=== PATIENT | male | born 1980 | race Caucasian/White ===

== ENCOUNTER 2020-10-26 10:11 | Emergency (ER) | payer OTHER, SELFPAY ==
[2020-10-26 10:47] VITALS: BP 124/64; PULSE 54; RESP 18; TEMP 36.7; O2SAT 98; BMI 25.0
--- NOTE | 2020-10-26 11:04 | ED.GENADULT ---
HPI - General Adult General Chief complaint: General Medical Stated complaint: ITCY SENSATION FACE SHOULDER CHEST Time Seen by Provider: 10/26/20 11:04 Source: patient Limitations: no limitations History of Present Illness HPI narrative: patient reports rash around his neck back to the base of his hairline. Rash is very itchy patient denies shortness of breath or any known contacts with allergens. Patient states rash has been ongoing and intermittent over the past few months. Patient is not taking any medicines for the rash in the past. Patient has not followed up with PCP. Patient is unsure if he has got contact with dirty water or other agents. Symptoms Related Data Previous Rx's Medication Instructions Recorded hydrocortisone 1 appl TOPICAL TID PRN #28.4 g 10/26/20 Allergies Allergy/AdvReac Type Severity Reaction Status Date / Time No Known Allergies Allergy Verified 10/26/20 10:44 Review of Systems Constitutional: Constitutional: Denies chills, Denies fever(s) and Denies headache(s) Eyes: Eyes: Reports as per HPI ENT: Denies headache(s) Cardiovascular: Cardiovascular: Denies chest pain and Denies dyspnea Respiratory: Respiratory: Denies dyspnea Gastrointestinal: Gastrointestinal: Denies nausea and Denies vomiting Integumentary/Breasts: Skin/Breast: Reports change in pigmentation and Reports rash Neurologic: Denies headache(s) Hematologic/Lymphatic: Hematologic/Lymphatic: Reports no additional hematologic/lymphatic complaints PMFSH Past Medical History Attestation statement: The following information was validated with the patient. Medical History No known health problems Social History Social History Advance Directives: Yes Advance Directives Information Provided: No Advance Directives on File: No Physical Exam Vital Signs: Vital Signs: Last Vital Signs Temp 98.1 F 10/26/20 10:47 Pulse 54 10/26/20 10:47 Resp 18 10/26/20 10:47 BP 124/64 10/26/20 10:47 Pulse Ox 98 10/26/20 10:47 Body Mass Index 25.0 vital signs have been reviewed as normal and appeared to be correct. Blood pressure normal. Heart rate normal. Respiration rate normal. Temperature normal. Oxygen saturation normal. Appearance: Alert. Oriented X3. No acute distress. Head: Normal external exam. Normocephalic. Atraumatic. Eyes: PERRLA. EOMI. ENT: Pharynx normal. Uvula midline. Moist mucous membranes. Neck: Soft full range of motion, no JVD CVS: Heart regular rate and rhythm no murmurs and rubs Respiratory: Breath sounds are clear to auscultation bilaterally. No accessory muscle use noted. Skin: patient has a slight maculopapular rash around the collar of the neck. Extending to the base of the hairline. No obvious blistering. Minimal erythema Extremities: No lower extremity edema. Extremities exhibit normal range of motion. Extremities nontender. Neuro: Oriented X 3. No motor deficit. No sensory deficit. Reflexes normal. Course Course Course Narrative: atopic dermatitis Contact dermatitis Allergic reaction Plan to trial patient on topical corticosteroids with follow-up with PCP and Dermatology Discharge Plan Discharge Clinical Impression: Contact dermatitis Patient Disposition: Home, Self-Care Instructions: Contact Dermatitis (ED) Additional Instructions: call PCP for referral to Dermatology new line dermatology phone Prescriptions: New hydrocortisone 1 % cream 1 appl topical TID PRN (Reason: rash) Qty: 28.4 RF: 0 Discharge Date/Time: 10/26/20 11:13
== END 2020-10-26 11:13 | disposition home or self-care (01) ==
PROVIDERS: Emergency Provider Emergency Medicine Emergency Medical Services
DX: L25.9 Unspecified contact dermatitis, unspecified cause (principal)
CPT/HCPCS: 99283

== ENCOUNTER 2021-05-06 20:14 | Emergency (ER) | payer OTHER, SELFPAY ==
[2021-05-06 21:09] VITALS: BP 106/57; PULSE 75; RESP 16; TEMP 36.3; O2SAT 98; BMI 24.4
== END 2021-05-07 01:17 | disposition left against medical advice (07) ==
PROVIDERS: Emergency Provider Emergency Medicine
DX: R10.9 Unspecified abdominal pain (principal)
CPT/HCPCS: 99281; 99282

== ENCOUNTER 2021-07-19 15:27 | Outpatient (REF) | payer OTHER, SELFPAY ==
--- NOTE | ~2021-07-19 | US_ITS ---
EXAMINATION: US SCROTUM CLINICAL INFORMATION: Scrotal pain. COMPARISON: None TECHNIQUE: A sonogram of the scrotum was performed assessing brown-scale appearance and color Doppler flow. Spectral Doppler analysis of the arterial and venous flow were performed in the testes bilaterally. FINDINGS: RIGHT: Right testicle measures 4.43 x 1.89 x 3.19 cm, volume 14.0 mL. There are numerous echogenic calcifications present. There is a small anechoic cyst in the lower pole measuring 0.18 x 0.22 x 0.15 cm. Spectral Doppler analysis of the arterial and venous flow is normal in the right testis. Right epididymal head is normal in size. There is small calcification in the right epidural head. Right epididymal Doppler flow is normal. There is a small hydrocele and a small varicocele present. LEFT: Left testicle measures 4.07 x 1.92 x 2.85 cm, volume 11.6 mL. There are numerous echogenic microcalcifications. Spectral Doppler analysis of the arterial and venous flow is normal in the left testis. Left epididymal head is normal in size. There is a small hydrocele and varicocele present. Left epididymal Doppler flow is normal. US/US scrotum IMPRESSION: 1. Bilateral hydroceles and varicocele. There is echogenic calcification of the right epididymal head. 2. 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 3. There is no evidence of scrotal hernia.
--- NOTE | ~2021-07-19 | US_ITS ---
EXAMINATION: US PELVIS, LIMITED/FOLLOW UP CLINICAL INFORMATION: Right groin lump. COMPARISON: None TECHNIQUE: Limited ultrasound imaging of right groin is performed. FINDINGS: Ultrasound imaging of right groin reveals peristaltic bowel loops in medial aspect of the right groin suggestive of hernia. To a similar extent similar findings are seen in the proximal left inguinal region. No mass or hematoma seen. US/US pelvic limited IMPRESSION: Likely bilateral inguinal hernia slightly more prominent on the right side involving proximal inguinal canal.
== END 2021-07-19 15:28 | disposition home or self-care (01) ==
LOC: HO.HMGCX 15:27
PROVIDERS: Visit Provider Nurse Practitioner Family
DX: N50.82 Scrotal pain (principal); R19.09 Other intra-abdominal and pelvic swelling, mass and lump
CPT/HCPCS: 76857; 76870

== ENCOUNTER 2021-08-09 15:43 | Outpatient (REF) | payer OTHER, SELFPAY ==
--- NOTE | ~2021-08-09 | US_ITS ---
EXAMINATION: US PELVIS, LIMITED/FOLLOW UP CLINICAL INFORMATION: Lump of right groin, evaluate for hernia COMPARISON: Limited ultrasound 07/19/2021 TECHNIQUE: Targeted ultrasound of the right groin in the area of concern was performed with a high-frequency linear transducer. FINDINGS: With the patient in standing position during Valsalva maneuvers, there is a small right inguinal hernia that contains fat and bowel. There is a 2.3 cm neck. The left inguinal region was scanned for comparison. No hernia is demonstrated. US/US pelvic limited IMPRESSION: Small right inguinal hernia containing fat and bowel, with a 2.3 cm neck is elicited only in the standing position, with Valsalva maneuver.
== END 2021-08-09 15:44 | disposition home or self-care (01) ==
LOC: HO.US 15:43
PROVIDERS: Visit Provider Nurse Practitioner Family
DX: R19.09 Other intra-abdominal and pelvic swelling, mass and lump (principal)
CPT/HCPCS: 76857

== ENCOUNTER → 2021-09-10 12:59 | Outpatient (BNVA) | payer OTHER, SELFPAY | PROVIDERS: PCP Nurse Practitioner Family; Visit Provider Surgery | DX: I45.6 Pre-excitation syndrome (principal); N50.82 Scrotal pain; R10.31 Right lower quadrant pain | CPT/HCPCS: 99202 ==

== ENCOUNTER 2021-09-20 12:11 | Outpatient (REF) | payer OTHER, SELFPAY ==
--- NOTE | ~2021-09-20 | CT_ITS ---
EXAMINATION: CT ABDOMEN AND PELVIS WITHOUT CONTRAST CLINICAL INFORMATION: Right lower quadrant pain COMPARISON: None TECHNIQUE: Multidetector volumetric imaging was performed from the superior aspect of the liver through the pubic symphysis. Sagittal and coronal reformatted images were obtained on the technologist's workstation. This CT examination was performed using dose optimization techniques as appropriate, variously including the following: *Automated exposure control *Adjustment of mA and/or kV according to patient size (this includes techniques or standardized protocols for targeted exams where dose is matched to indication/reason for exam; i.e. extremities or head) *Use of iterative reconstruction technique DLP: 396 mGy-cm FINDINGS: LUNG BASES: The visualized lung bases are unremarkable. LIVER, GALLBLADDER, AND BILIARY TREE: The liver is normal in size, shape, and attenuation. No focal hepatic lesion or biliary ductal dilatation is present. The gallbladder is unremarkable with no evidence of radiopaque gallstones, gallbladder wall thickening, or obvious pericholecystic inflammatory changes. PANCREAS: Unremarkable. SPLEEN: Unremarkable. ADRENAL GLANDS: Unremarkable. KIDNEYS AND URETERS: The kidneys are normal in size, shape, and attenuation. No hydronephrosis, hydroureter, or calculi seen. No perinephric stranding. BLADDER: Unremarkable. GASTROINTESTINAL TRACT: The small and large bowel are unremarkable. The appendix is unremarkable. ABDOMINAL WALL: No significant hernia is appreciated. LYMPH NODES: Normal. VASCULAR: Unremarkable. PELVIC VISCERA: The prostate and seminal vesicles are unremarkable. OSSEOUS STRUCTURES: No acute or suspicious osseous abnormality. CT/CT abdomen pelvis wo con IMPRESSION: No suspicious findings in the abdomen or pelvis. No inflammatory changes. Normal appendix. Fleischner guidelines were followed.
[2021-09-20] MEDS: Barium Sulfate Oral (Mocha) 450 ML ORAL.SUSP 900 ML PO (14:29)
== END 2021-09-20 12:12 | disposition home or self-care (01) ==
LOC: HO.CT 12:11
PROVIDERS: Visit Provider Surgery
DX: R10.31 Right lower quadrant pain (principal)
CPT/HCPCS: 74176

== ENCOUNTER → 2021-10-05 13:42 | Outpatient (BNVA) | payer OTHER, SELFPAY | PROVIDERS: PCP Nurse Practitioner Family; Visit Provider Surgery | DX: R39.11 Hesitancy of micturition (principal); R10.31 Right lower quadrant pain; I45.6 Pre-excitation syndrome | CPT/HCPCS: 99212 ==

== ENCOUNTER 2021-11-04 23:20 | Emergency (ER) | payer OTHER, SELFPAY ==
--- NOTE | ~2021-11-04 | XR_ITS ---
EXAMINATION: XR KNEE, LEFT CLINICAL INFORMATION: Knee injury COMPARISON: None TECHNIQUE: Four views of the left knee. 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 There is a new small knee joint effusion. No other abnormalities are seen. No joint space narrowing, significant osteophytes or chondrocalcinosis is present. 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
[2021-11-05 00:33] VITALS: BP 108/69; PULSE 76; RESP 16; TEMP 36.3; O2SAT 99; BMI 25.7
--- NOTE | 2021-11-05 01:06 | ED_ITS ---
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 Subsequently have pain on ambulation. Patient was working at the time. No systemic complaints no head injury no history being on blood thinners. No systemic complaints. Came in for further evaluation. Related Data Home Medications Medication Instructions Recorded Confirmed No Known Home Meds 09/10/21 09/10/21 Allergies Allergy/AdvReac Type Severity Reaction Status Date / Time No Known Allergies Allergy Verified 11/05/21 00:37 Review of Systems Review of Systems: No fever no chills no nausea no vomiting no head injury Yes all other systems are reviewed and are negative [facility] Past Medical History Attestation statement: The following information was validated with the patient. 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 Oriented X3. No acute distress. Eyes: Pupils equal, round and reactive to light. ENT: Pharynx normal. Neck: Normal inspection. Neck supple. No lymph nodes noted. No crepitus CVS: Normal heart rate and rhythm. Pulses normal. Normal S1 and S2 Respiratory: No respiratory distress. Breath sounds normal. No Wheezing. No rales Abdomen: Soft and nontender. No rigidity. No distention. good BS x4 Skin: Skin warm and dry. Normal skin color. Normal skin turgor. Extremities: Examination of the left knee show mild pain on palpation of the lateral collateral ligament. There is no pain on palpation of the patella or the medial collateral ligament. Range of motion is somewhat limited secondary to pain. Patient has no joint effusion or palpable. Distal neuro vascular status was intact. Ambulate with a slight limp. Neuro: Oriented X 3. No motor deficit. No sensory deficit. Moving all extermities. No slurred speech MDM - Extremity Injury (Lower) MDM Narrative Medical decision making narrative: X-ray showed no acute fracture cannot exclude the possibility of meniscal or ligamentous injury. With patient follow-up on an outpatient basis. In stable condition. Discharge Plan Discharge Clinical Impression: Acute internal derangement of knee Patient Disposition: Home, Self-Care Instructions: Knee Sprain (ED) Additional Instructions: Ice, elevate, Motrin for pain. Prescriptions: No Action No Known Home Meds Referrals: [facility] [Provider Group] Robert Eric MD [Physician] -
[2021-11-05] MEDS: Ibuprofen 600 MG TABLET PO (02:22)
== END 2021-11-05 02:25 | disposition home or self-care (01) ==
PROVIDERS: Emergency Provider Emergency Medicine Emergency Medical Services
DX: M23.92 Unspecified internal derangement of left knee (principal); F17.200 Nicotine dependence, unspecified, uncomplicated; Z71.6 Tobacco abuse counseling
CPT/HCPCS: 73564; 99283

== ENCOUNTER 2023-07-10 11:41 | Emergency (ER) | payer OTHER, SELFPAY ==
--- NOTE | ~2023-07-10 | CT_ITS ---
EXAMINATION: CT ABDOMEN AND PELVIS WITHOUT CONTRAST CLINICAL INFORMATION: Hematuria. COMPARISON: 09/20/2021 TECHNIQUE: Multidetector volumetric imaging was performed from the superior aspect of the liver through the pubic symphysis. Sagittal and coronal reformatted images were obtained on the technologist's workstation. This CT examination was performed using dose optimization techniques as appropriate, variously including the following: *Automated exposure control *Adjustment of mA and/or kV according to patient size (this includes techniques or standardized protocols for targeted exams where dose is matched to indication/reason for exam; i.e. extremities or head) *Use of iterative reconstruction technique DLP: 307 mGy-cm FINDINGS: LUNG BASES: The visualized lung bases are unremarkable. LIVER, GALLBLADDER, AND BILIARY TREE: The noncontrast liver is normal in size and contour. Scattered hypodensities are too small to characterize. No biliary ductal dilatation is present. The gallbladder is unremarkable with no evidence of radiopaque gallstones, gallbladder wall thickening, or obvious pericholecystic inflammatory changes. PANCREAS: Unremarkable. SPLEEN: Unremarkable. ADRENAL GLANDS: Unremarkable. KIDNEYS AND URETERS: The kidneys are symmetric in size. No renal or ureteral calculus. No hydronephrosis, hydroureter, or calculi seen. No perinephric stranding. BLADDER: Underdistended. No bladder calculus. GASTROINTESTINAL TRACT: Thick-walled loops of small bowel in the left midabdomen. No small bowel obstruction. ABDOMINAL WALL: No significant hernia is appreciated. LYMPH NODES: No bulky lymphadenopathy. VASCULAR: Normal caliber abdominal aorta. PELVIC VISCERA: Enlarged prostate gland. OSSEOUS STRUCTURES: No destructive bone lesions. CT/CT abdomen pelvis wo IV con IMPRESSION: No nephrolithiasis or hydronephrosis. Thick-walled loops of small bowel in the left midabdomen. This may represent enteritis. Advise clinical correlation.
[2023-07-10 11:45] VITALS: BP 104/83; PULSE 78; RESP 16; TEMP 37.1; O2SAT 97; BMI 24.2
[2023-07-10 12:13] LABS: MANUAL DIFF FLAG NO
[2023-07-10 12:15] LABS: Basophils Absolute Auto 0.1 X10*3/uL (0.0-0.2); Basophils Percent Auto 0.7 % (0-2); Eosinophils Absolute Auto 0.9 X10*3/uL (0.0-0.4); Eosinophils Percent Auto 12.3 % (0-4); Hematocrit 43.6 % (42.0-52.0); Hemoglobin 14.7 g/dl (14.0-18.0); Imm Gran Abs Auto 0.01 X10*3/uL (0.00-0.03); Imm Gran Pct Auto 0.1 % (0.0-0.4); Lymphocytes Absolute Auto 1.7 X10*3/uL (1.2-4.9); Mean Corpuscular HGB Conc 33.7 g/dl (31.0-36.0); Mean Corpuscular Hemoglobin 28.8 pg (27.0-33.0); Mean Corpuscular Volume 85.5 fL (80.0-98.0); Mean Platelet Volume 10.8 fL (9.4-12.4); Monocytes Absolute Auto 0.6 X10*3/uL (0.1-1.2); Monocytes Percent Auto 7.8 % (2-11); Neutrophils Absolute Auto 4.1 x10*3/uL (2.0-8.3); Neutrophils Percent Auto 56.1 % (45-73); Platelet Count 149 X10*3/uL (160-400); Red Cell Distribution Width 12.4 % (11.0-16.0); White Blood Count 7.4 X10*3/uL (4.8-10.8)
[2023-07-10 12:18] LABS: Appearance Urine Clear; Color Urine Yellow; Glucose Urine UA Negative (Negative); Leukocyte Esterase Urine Negative (Negative); Nitrite Urine Negative (Negative); PH 8.5 (5.0-9.0); Specific Gravity - Urine 1.015 (1.005-1.025); UMIC TRIGGER UACC YES; Urine Blood Small (1+) (Negative); Urine Ketones Negative (Negative); Urine Protein Negative (Neg-Trace)
[2023-07-10 12:23] LABS: Bacteria Urine None Seen (None Seen); Hyaline Casts Urine 0-2 /LPF (0-2); Squamous Epithelial Cell Urine 0-2 /HPF (0-2); UACC Culture Trigger YES
[2023-07-10 12:32] LABS: Alanine Aminotransferase 13 U/L (0-40); Albumin Level 4.4 g/dL (3.5-5.0); Alkaline Phosphatase 68 U/L (39-117); Anion Gap 11 (12-20); Aspartate Amino Transferase 15 U/L (5-37); Bilirubin Direct 0.1 mg/dL (0.0-0.5); Bilirubin Total 0.3 mg/dL (0.0-1.0); Blood Urea Nitrogen 9 mg/dL (9-16); Calcium 9.2 mg/dL (8.4-10.2); Carbon Dioxide 27 mmol/L (22-29); Chloride 107 mmol/L (96-108); Creatinine Clr Calc Pharmacy 117.4; Estimated Glomerular Filt Rate > 60; Glucose Random 106 mg/dL (60-115); Potassium 4.1 mmol/L (3.3-5.1); Sodium 141 mmol/L (135-145); Total Protein 6.9 g/dL (6.5-8.0)
[2023-07-10 12:49] VITALS: RESP 18
--- NOTE | 2023-07-10 13:00 | PC.NURSE ---
Patient came to ED from home due to hematuria this morning. Patient reports seeing 3-4 drops of red blood right after urinating. Patient states he is not taking thinners. Patient reports feeling urinary urgency but no incontinence. Patient has small, movable, non-painful lump in right suprapubic area that patient noticed 2 years ago. Patient also reports tightness feeling in LUQ. bowel sounds present, firmness felt in LUQ during exam. lung sounds clear throughout, vss.
--- NOTE | 2023-07-10 13:00 | ED.ABDPAIN ---
HPI - Abdominal Pain General Chief Complaint: Abdominal Pain Stated Complaint: Blood in stool/urine?, abd tightness Time Seen by Provider: 07/10/23 12:32 History of Present Illness HPI narrative: Patient is 43 years old presents today with having urination then noticed question few drops of blood at the end of his urination. Patient denies any fever chills. No cough no congestion or upper respiratory symptoms. Feels that his abdomen is asymmetric it may have some pain in the left upper quadrant area. Denies any penile discharge. Denies any blood in his stool. No diaphoresis. Patient also noted a bump in the right lower quadrant that has been ongoing for about 2 years. Patient can push it back. Did not have any nausea vomiting or diarrhea associated with it. Denies any alcohol or drugs. Related Data Home Medications Medication Instructions Recorded Confirmed No Known Home Meds 09/10/21 09/10/21 Allergies Allergy/AdvReac Type Severity Reaction Status Date / Time No Known Allergies Allergy Verified 11/05/21 00:37 Review of Systems Review of Systems Positive bloody urine Question left upper quadrant abdominal discomfort Yes all other systems are reviewed and are negative [facility] Past Medical History Source: unable to obtain Medical History Right inguinal hernia No known health problems Surgical History History of hand surgery Family History Family History Mother Diabetes Maternal Grandmother Diabetes Maternal Uncle Mouth cancer Other Substance use disorder Social History Social History Housing: House Alcohol intake: never Patient Tobacco Use Status: Current everyday Tobacco user Smoked in Last 30 Days: No e-Cigarette/Vaping Use: Never Used Second Hand Smoke Exposure: Yes Use of substances other than those prescribed or required for medical reasons: Yes Substance Use Type: Marijuana Substance Use Frequency: Occasionally Advance Directives: No service: No Current occupational status: employed 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 Oriented X3. No acute distress. Eyes: Pupils equal, round and reactive to light. ENT: Pharynx normal. Neck: Normal inspection. Neck supple. No lymph nodes noted. No crepitus CVS: Normal heart rate and rhythm. Pulses normal. Normal S1 and S2 Respiratory: No respiratory distress. Breath sounds normal. No Wheezing. No rales Abdomen: Soft and nontender. No rigidity. No distention. good BS x4 Skin: Skin warm and dry. Normal skin color. Normal skin turgor. Extremities: No lower extremity edema. Neurovascular intact to all extremities. No Lacerations. No Rash Neuro: Oriented X 3. No motor deficit. No sensory deficit. Moving all extermities. No slurred speech Medical Decision Making Medical Decision Making [facility] Narrative: Patient complaining of blood in the urine. CT scan of the abdomen pelvis did not show any acute evidence of kidney stone. No gross mass noted. It was a noncontrast study. Explained to patient the need to follow-up for his microscopic hematuria. Patient states understanding. Risk of malignancy still exists. CT scan showed no acute evidence of obstruction. No gross hernia. No abscesses. Question enteritis. Will have patient follow-up on an outpatient basis. Labs are normal. Urine showed no signs of infection. Patient denies any risk of STDs. In stable condition no dysuria postvoid patient has less than 250 cc no retention. Differential Diagnosis Differential Diagnoses: The differential diagnosis associated with the presentation includes Kidney stone, hematuria, UTI/cystitis Admission/Observation Consideration of admission/observation: Escalation of care including admission/observation considered Lab Data [facility] Lab Attestation statement: I reviewed the patient's lab results. 07/10/23 12:04 07/10/23 12:04 Labs: Lab Results 07/10/23 Range/Units 12:04 WBC 7.4 (4.8-10.8) X10*3/uL RBC 5.10 (4.60-5.80) X10*6/uL Hgb 14.7 (14.0-18.0) g/dl Hct 43.6 (42.0-52.0) % MCV 85.5 (80.0-98.0) fL MCH 28.8 (27.0-33.0) pg MCHC 33.7 (31.0-36.0) g/dl RDW 12.4 (11.0-16.0) % Plt Count 149 L (160-400) X10*3/uL MPV 10.8 (9.4-12.4) fL Immature Gran % (Auto) 0.1 (0.0-0.4) % Neut % (Auto) 56.1 (45-73) % Lymph % (Auto) 23.0 (20-40) % [place] % (Auto) 7.8 (2-11) % Eos % (Auto) 12.3 H (0-4) % Baso % (Auto) 0.7 (0-2) % Lymph # (Auto) 1.7 (1.2-4.9) X10*3/uL [place] # (Auto) 0.6 (0.1-1.2) X10*3/uL Eos # (Auto) 0.9 H (0.0-0.4) X10*3/uL Baso # (Auto) 0.1 (0.0-0.2) X10*3/uL Abs Immat Gran (auto) 0.01 (0.00-0.03) X10*3/uL Absolute Neuts (auto) 4.1 (2.0-8.3) x10*3/uL Absolute Nucleated RBC 0.000 (0.0-0.012) X10*3/uL Nucleated RBC % (auto) 0.0 (0.0-0.2) /100WBC Sodium 141 (135-145) mmol/L Potassium 4.1 (3.3-5.1) mmol/L Chloride 107 (96-108) mmol/L Carbon Dioxide 27 (22-29) mmol/L Anion Gap 11 L (12-20) BUN 9 (9-16) mg/dL Creatinine 0.89 (0.5-1.4) mg/dL Estim Creat Clear Calc 117.4 Estimated GFR > 60 Random Glucose 106 (60-115) mg/dL Calcium 9.2 (8.4-10.2) mg/dL Total Bilirubin 0.3 (0.0-1.0) mg/dL Direct Bilirubin 0.1 (0.0-0.5) mg/dL AST 15 (5-37) U/L ALT 13 (0-40) U/L Alkaline Phosphatase 68 (39-117) U/L Total Protein 6.9 (6.5-8.0) g/dL Albumin 4.4 (3.5-5.0) g/dL Urine Color Yellow Urine Appearance Clear Urine pH 8.5 (5.0-9.0) Ur Specific [place] 1.015 (1.005-1.025) Urine Protein Negative (Neg-Trace) mg/dL Urine Glucose (UA) Negative (Negative) mg/dL Urine Ketones Negative (Negative) mg/dL Urine Blood Small (1+) H (Negative) Urine Nitrite Negative (Negative) Ur Leukocyte Esterase Negative (Negative) Urine RBC 11-20 H (0-2) /HPF Urine WBC 6-10 H (0-5) /HPF Ur Squamous Epith Cells 0-2 (0-2) /HPF Urine Bacteria None Seen (None Seen) Hyaline Casts 0-2 (0-2) /LPF Independent Interpretation I performed an independent interpretation of an: CT Scan Radiology Impression Discussion of test interpretation with radiology: I have reviewed the radiologist's reading. External Record Review External record reviewed: Inpatient record Previous radiology report including CT reviewed Chronic Conditions History of WP[facility] Discharge Plan Discharge Clinical Impression: Hematuria Patient Disposition: Home, Self-Care Instructions: Hematuria (ED) Prescriptions: No Action No Known Home Meds Referrals: Leonard Aaron MD [Physician] - 07/14/23
--- NOTE | 2023-07-10 13:21 | PC.NURSE ---
patient urinated, bladder scanned post urination, 1ml in bladder. Patient to CT scan now.
[2023-07-10 14:21] VITALS: BP 91/62; PULSE 55; RESP 14; O2SAT 98
[2023-07-10 15:01] VITALS: BP 105/57; PULSE 64; RESP 18; O2SAT 99
== END 2023-07-10 15:06 | disposition home or self-care (01) ==
PROVIDERS: Emergency Provider Emergency Medicine Emergency Medical Services
DX: R31.9 Hematuria, unspecified (principal); R10.2 Pelvic and perineal pain; Z79.899 Other long term (current) drug therapy
CPT/HCPCS: 36415; 74176; 80048; 80076; 81001; 85025; 87086; 99284

== ENCOUNTER 2024-10-02 21:50 | Emergency (ER) | payer OTHER, SELFPAY ==
[2024-10-02 21:58] VITALS: BP 115/77; PULSE 67; RESP 18; TEMP 36.7; O2SAT 98; BMI 24.4
--- NOTE | 2024-10-03 00:31 | ED.WOUNDLAC ---
HPI - Wound/Laceration General Chief Complaint: Wound/Laceration Stated Complaint: hand laceration/sutured at [facility]/bleeding Time Seen by Provider: 10/03/24 00:23 Source: patient Mode of arrival: ambulatory Limitations: no limitations History of Present Illness ED Provider: HPI narrative: Patient apparently got laceration of the left hand from the tremor earlier was seen at [facility] on stitches were applied when patient went home noticed bleeding from the suture site does have patient came to the ER at this time no active bleeding patient is concerned that spacing between the sutures are very distant patient has received a tetanus shot at [facility] Related Data Home Medications ?Medication ?Instructions ?Recorded ?Confirmed No Known Home Meds 09/10/21 09/10/21 Allergies Allergy/AdvReac Type Severity Reaction Status Date / Time No Known Allergies Allergy Verified 10/02/24 22:01 Review of Systems Review of Systems: Yes all other systems are reviewed and are negative [facility] Past Medical History Medical History Right inguinal hernia No known health problems Surgical History History of hand surgery Family History Family History Mother Diabetes Maternal Grandmother Diabetes Maternal Uncle Mouth cancer Other Substance use disorder Social History Social History Housing: House Alcohol intake: never Patient Tobacco Use Status: Current everyday Tobacco user e-Cigarette/Vaping Use: Never Used Second Hand Smoke Exposure: Yes Substance Use Type: Marijuana Advance Directives: No Advance Directives Information Provided: No Do you have a plan to hurt others: No Plan service: No Current occupational status: employed 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 Oriented X3. No acute distress. Eyes: no pallor or icterus ENT: Pharynx normal Oral Mucosa moist tympanic membrane intact no erythema, Neck: Normal inspection. Neck supple. CVS: Normal heart rate and rhythm. Pulses normal. Respiratory: No respiratory distress. Equal air entry bilateral, no wheezing/rales/rhonchi Abd: soft, not tender Skin: Skin warm and dry. Normal skin color. Normal skin turgor. Extremities: Left hand with sutured laceration no active bleeding fairly approximated but still has gap between the stitches Neuro: Oriented X 3. Medical Decision Making Medical Decision Making MDM Narrative: Dermabond was applied at the places of separation of the skin which was superficial Discharge Plan Discharge Clinical Impression: Laceration of left hand Patient Disposition: Home, Self-Care Instructions: Laceration (ED) Additional Instructions: Local care as advised Take antibiotic as prescribed by other physician at [facility] Suture removal in 7-10 days Prescriptions: No Action No Known Home Meds Stand Alone Forms: Work/School Release Interventions: ED Discharge Assessment Last Done: 10/03/24 01:01 Discharge Date/Time: 10/03/24 01:04 Print Language: Peruvian
[2024-10-03 01:01] VITALS: BP 138/81; PULSE 79; RESP 18; TEMP 36.7; O2SAT 98
== END 2024-10-03 01:04 | disposition home or self-care (01) ==
PROVIDERS: Emergency Provider Internal Medicine; PCP Internal Medicine
DX: S61.412A Laceration without foreign body of left hand, initial encounter (principal); X58.XXXA Exposure to other specified factors, initial encounter; M79.642 Pain in left hand; Y93.9 Activity, unspecified; Y92.9 Unspecified place or not applicable; Y99.9 Unspecified external cause status
CPT/HCPCS: 12001; 99282

== ENCOUNTER 2024-10-19 08:27 | Outpatient (AMB) | payer OTHER, SELFPAY ==
--- NOTE | 2024-10-19 08:30 | A.OFFPC_ITS ---
Vital Signs 10/19/24 08:31 Height 6 ft 1 in Weight 170 lb 8 oz BMI 22.5 BP 110/66 Blood Pressure Location Lt brachial Position Sitting Respiration 18 Pulse 69 Pulse Source Pulse Oximeter Temp 97.1 F Temp Source Temporal Artery Scan Pulse Oximetry (%) 97 Oxygen Delivery Method Room Air Intake Visit Reasons: follow up Intake Note: Patient is today for re-establishment of care. Mini Bar Attendant Required: No Sign Maker: Not Required per policy Accompanied by: Self / Same As Patient Allergies No Known Allergies Allergy (Verified 10/19/24 09:03) Medication List - Last Reconciled 10/19/24 by VALENTINO Carrington No Known Home Meds Tobacco use date assessed: 10/19/24 Dental Screening Dental Screen Date: 10/19/24 Did you have a dental visit in the last 12 months?: No Did you have a dental problem in the last 6 months where you did not have access to dental care?: No Was dental information given to patient?: Patient declined HPI follow up HPI Details Previous PCP:VALENTINO Linton Last visit: 2019 PE: same Specialist: no OBGYN:n/a Past medical history: no new diagnosis Medications:no Family HX: cancer of unspecified types, 3 of his uncles and great aunt of cancer Problem: The patient is a 44-year-old male presenting with concerns about a lipoma, abdominal pain, and a skin condition. The patient reports a lipoma located in the groin area, which has been present for approximately two to three years. He has undergone multiple evaluations, including imaging, which confirmed the diagnosis of a lipoma. The lipoma does not cause pain but is a cosmetic concern for the patient. The patient also reports experiencing abdominal pain, described as occurring every night and located in the upper abdomen near the rib cage. The pain is not associated with any specific activities and does not worsen with palpation. Additionally, the patient has a skin condition characterized by widespread itching and white patches, which has persisted for about two years. He has tried various topical treatments without significant improvement and expresses concern about the appearance and persistence of the condition. The patient has a family history of cancer, with unspecified types affecting his uncle and great aunt. He denies any recent changes in his health status or new diagnoses since his last medical evaluation. 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 1. Little interest or pleasure in doing things: not at all 2. Feeling down, depressed, or hopeless: not at all 3. Trouble falling or staying asleep, or sleeping too much: not at all 4. Feeling tired or having little energy: not at all 5. Poor appetite or overeating: not at all 6. Feeling bad about yourself - or that you are a failure or have let yourself or your family down: not at all 7. Trouble concentrating on things, such as reading the newspaper or watching television: not at all 8. Moving or speaking so slowly that other people could have noticed. Or the opposite - being so fidgety or restless that you have been moving around a lot more than usual: not at all 9. Thoughts that you would be better off or of hurting yourself in some way: not at all Total score: 0 Depression Screening Interpretation: Negative Depression Screening Done: Yes Source: Developed by Drs. Jamie Herrera, Fernanda Combs, Pablo Cai and colleagues, with an educational allan from [employer]. Thrive Questionnaire Date Thrive assessed: 09/24/24 Within the past 12 months, did the food you bought not last and you didn't have the money to get more?: I choose not to answer this question Within the past 12 months, did you worry whether your food would run out before you got money to buy more?: I choose not to answer this question Do you have trouble paying for medicines?: No Do you have trouble getting transportation to medical appointments?: No Do you have trouble paying your heating and electricity bill?: No Do you have trouble taking care of your child, family member or friend?: No Do you have trouble with day-to-day activities such as bathing, preparing meals, shopping, managing finances, etc.?: No Are you currently unemployed and looking for a job?: Yes Are you interested in more education?: No Please select the resources that you would like help with: None Currently or been in a relationship where the following occur: I choose not to answer THRIVE Score: 0 AUDIT C Alcohol Use Questionnaire (AUDIT-C) 1. How often do you have a drink containing alcohol?: Never Total Score: 0 WELLINGTON-7 AMB Questionnaire WELLINGTON-7 Date WELLINGTON - 7 assessed: 10/19/24 Feeling nervous, anxious, or on edge: 0 = Not at all Not being able to stop or control worryin = Not at all Worrying too much about different things: 0 = Not at all Trouble relaxin = Not at all Being so restless that it is hard to sit still: 0 = Not at all Becoming easily annoyed or irritable: 0 = Not at all Feeling afraid as if something awful might happen: 0 = Not at all Total WELLINGTON-7 score (0-4 normal; 5-9 mild; 10-14 moderate; 15-21 severe): 0 Source: Developed by Drs. Jamie Herrera, Fernanda Combs, Pablo Cai and colleagues, with an educational allan from [employer]. WELLINGTON-7 Assessment Billing WELLINGTON-7 Assessment Tool: WELLINGTON-7 Assessment 38985 Review of Systems Const Denies headache(s) Eyes Denies loss of vision ENT Denies vertigo, Denies dizziness, Denies headache(s) and Denies sore throat Card Denies chest pain, Denies leg edema and Denies lightheadedness Resp Denies cough, Denies hemoptysis and Denies wheezing GI Denies abdominal pain, Denies melena, Denies constipation, Denies diarrhea and Denies vomiting Denies dysuria, Denies urinary frequency, Denies urinary urgency and Reports other (lump in right groin) Musc Denies arthralgias, Denies joint swelling, Denies numbness and Denies tingling Skin/Breast Reports lesions (whites spots widespread all over his body) Neuro Denies Abnormal speech present, Denies behavioral changes, Denies vertigo, Denies dizziness, Denies headache(s), Denies loss of vision, Denies memory loss, Denies numbness and Denies tingling Psych Denies anxiety, Denies behavioral changes, Denies depression, Denies memory loss and Denies panic attacks Matias/Lymph Denies easy bleeding and Denies easy bruising Aller/Immun Denies wheezing Physical exam (Primary Care) Vital Signs: Last Vital Signs Temp 97.1 F 10/19/24 08:31 Pulse 69 10/19/24 08:31 Resp 18 10/19/24 08:31 BP 110/66 10/19/24 08:31 Pulse Ox 97 10/19/24 08:31 Oxygen Delivery Method Room Air 10/19/24 08:31 BMI result Body Mass Index 22.5 Tobacco/Smoking Status: Tobacco use Status Tobacco use date assessed 10/19/24 10/19/24 08:31 Patient Tobacco Use Status Former Tobacco user 10/19/24 08:38 Tobacco use type Cigarette 10/19/24 08:31 e-Cigarette/Vaping Use Never Used 10/19/24 08:37 PHQ-9: PHQ-9 Score PHQ-9: Total score 0 10/19/24 09:03 Depression Screening Interpretation: Negative Thrive Assessment: Date of Thrive Assessment Date Thrive assessed 09/24/24 10/19/24 08:31 Currently or been in a relationship where the following occur: I choose not to answer Const General: healthy appearing, no acute distress, alert and awake Nutritional Appearance: well nourished Orientation/consciousness: oriented to person, oriented to place and oriented to time HENMT Ears: TM's normal bilaterally General nose exam: Normal nasal mucous membranes and turbinates present Eyes Conjunctivae: conjunctivae normal Sclerae: sclerae normal Pupils: Equal, round and reactive pupils present Neck Neck: Yes no lymphadenopathy and Yes no JVD Thyroid: Thyroid normal Carotids: no bruits Resp Effort & Inspection: normal respiratory effort and not tachypneic Auscultation: no crackles, no rales, no rhonchi and no wheezes Cardio Rate: regular rate Rhythm: regular rhythm Heart sounds: no murmurs and normal S1 and S2 GI Palpation (GI): Soft to palpation, nontender, no hepatomegaly and no splenomegaly Auscultation: normal bowel sounds General: Yes no CVA tenderness Male General Exam: Yes other (small soft lump in right groin) Back/Spine/Pelvis Back: no CVA tenderness Skin General skin exam: dry skin Lesions: lesion noted (white patches widespread, arms, torso, back, and legs) Neuro General: oriented to person, oriented to place and oriented to time Cranial nerves: Yes Equal, round and reactive pupils present Speech: No Abnormal speech present Gait exam (Neuro): Normal gait present Motor exam (neuro): no tremor noted Extrem Right upper extremity: full ROM Left upper extremity: full ROM Right lower extremity: full ROM; no edema Left lower extremity: full ROM; no edema Psych Mental Status: mental status grossly normal Speech and movement: Normal speech and movement present Affect: normal affect Attitude: cooperative Thought process: Normal thought process present Coding Level of Care Code New Pt Level 3 (96296) Diagnoses Rt groin pain R10.31 Tinea versicolor B36.0 Additional Codes WELLINGTON-7 Assessment Billing - WELLINGTON-7 Assessment Tool: WELLINGTON-7 Assessment 17016 ([id number]) Time Spent (min) 36 Assessment & Plan Assessment & Plan (1) Rt groin pain: Code(s): R10.31 - Right lower quadrant pain Category: Medical Plan: Right groin small raised area Patient's saw General surgery in the past and was told that it is lipoma He wants it removed, will refer the patient back to general surgery (2) Tinea versicolor: Code(s): B36.0 - Pityriasis versicolor Category: Medical Plan: White patches widespread all over his body Selenium sulfide 2.5% ordered, will refer him dermatology because it is widespread Orders: Orders Lipid Panel Today I45.6 - Pre-excitation syndrome, R19.09 - Other intra- abdominal and pelvic swelling, mass and lump, Z76.89 - Persons encountering health services in other specified circumstances UA CC w/rflx Micro + Cult Today I45.6 - Pre-excitation syndrome, R19.09 - Other intra-abdominal and pelvic swelling, mass and lump, Z76.89 - Persons encountering health services in other specified circumstances TSH reflex Free T4 Today I45.6 - Pre-excitation syndrome, R19.09 - Other intra- abdominal and pelvic swelling, mass and lump, Z76.89 - Persons encountering health services in other specified circumstances Complete Blood Count Auto Diff Today I45.6 - Pre-excitation syndrome, R19.09 - Other intra-abdominal and pelvic swelling, mass and lump, Z76.89 - Persons encountering health services in other specified circumstances Comprehensive [place]. Panel Fast Today I45.6 - Pre-excitation syndrome, R19.09 - Other intra-abdominal and pelvic swelling, mass and lump, Z76.89 - Persons encountering health services in other specified circumstances Vitamin D 25-OH Total Today I45.6 - Pre-excitation syndrome, R19.09 - Other intra-abdominal and pelvic swelling, mass and lump, Z76.89 - Persons encountering health services in other specified circumstances Referrals General Surgery Referral R19.09 - Other intra-abdominal and pelvic swelling, mass and lump Dermatology Referral B36.0 - Pityriasis versicolor Medications: New selenium sulfide 2.5% 1 appl topical Q4W 120 mL 3RF
[2024-10-19 08:31] VITALS: BP 110/66; PULSE 69; RESP 18; TEMP 36.2; O2SAT 97; BMI 22.5
--- OUTSIDE RECORDS SUMMARY | 2024-10-19 08:40 | XMS_ITS | Clinical Summary ---
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 Building Architectural Designer Name Role Phone Unavailable Primary Care Provider Unavailabl e Social History Tobacco Use Types Packs/Day Years Used Date Smoking Tobacco: Never Assessed Sex and Gender Information Value Date Recorded Sex Assigned at Not on file Legal Sex Male 9:39 AM EDT Gender Identity Not on file Sexual Orientation Not on file Last Filed Vital Signs Vital Sign Reading Time Taken Comments Blood Pressure 118/78 09/06/2021 7:52 AM EDT Pulse 65 09/06/2021 7:52 AM EDT Temperature - - Respiratory Rate - - Oxygen Saturation 99% 09/06/2021 7:52 AM EDT Inhaled Oxygen Concentration - - Weight 80.7 kg (178 lb) 09/06/2021 7:52 AM EDT Height 177.8 cm (5' 10 ) 09/06/2021 7:52 AM EDT Body Mass Index 25.54 09/06/2021 7:52 AM EDT Plan of Treatment Health Maintenance Due Date Last Done Comments Hepatitis C Screening 1980 DTaP/Tdap/Td (1 - Tdap) 1998 Hep B (1 of 3 - 19+ 3-dose series) 1999 COVID-19 Vaccine ( - 2023-2 5 season) 2023 Influenza (Season Ended) 2024 Zoster (Shingrix) (1 of 2) 2030 HPV Vaccine Aged Out No longer eligi ble based on patient's age to complete this topic Hep A Aged Out No longer eligi ble based on patient's age to complete this topic Hib Aged Out No longer eligi ble based on patient's age to complete this topic Meningococcal ACWY Aged Out No longer eligible based on patient's age to complete this topic Pneumococcal Aged Out No longer eligi ble based on patient's age to complete this topic
== END 2024-10-19 09:52 | disposition home or self-care (01) ==
LOC: HO.HMCH 08:28
PROVIDERS: PCP Internal Medicine
DX: R10.31 Right lower quadrant pain (principal); B36.0 Pityriasis versicolor

== ENCOUNTER → 2024-10-19 08:27 | Outpatient (BNVA) | payer OTHER, SELFPAY | PROVIDERS: PCP Internal Medicine | DX: R10.31 Right lower quadrant pain (principal); B36.0 Pityriasis versicolor; I45.6 Pre-excitation syndrome; D17.39 Benign lipomatous neoplasm of skin and subcutaneous tissue of other sites | CPT/HCPCS: 96127; 99202 ==

== ENCOUNTER 2024-12-15 16:04 | Outpatient (AMB) | payer OTHER, SELFPAY ==
[2024-12-15 16:07] VITALS: BP 100/70; PULSE 75; RESP 18; O2SAT 98; BMI 23.1
--- NOTE | 2024-12-15 16:07 | A.OFFPC_ITS ---
Vital Signs 12/15/24 16:07 Height 6 ft 1 in Weight 175 lb BMI 23.1 BP 100/70 Blood Pressure Location Lt brachial Position Sitting Respiration 18 Pulse 75 Pulse Source Pulse Oximeter Temp Source Temporal Artery Scan Pulse Oximetry (%) 98 Oxygen Delivery Method Room Air Intake Visit Reasons: Annual Exam Key Person Required: No Accompanied by: Self / Same As Patient Allergies No Known Allergies Allergy (Verified 12/15/24 16:20) Medication List - Last Reconciled 12/15/24 by VALENTINO Carrington selenium sulfide 2.5% 1 appl topical Q4W Tobacco use date assessed: 12/15/24 Dental Screening Dental Screen Date: 12/15/24 Did you have a dental visit in the last 12 months?: Yes Did you have a dental problem in the last 6 months where you did not have access to dental care?: No Was dental information given to patient?: Patient has dentist HPI Annual Exam HPI Details The patient is 44 year old male presenting for an initial annual that was switched to a worker's comp due to his concerns He is here with work-related hand injury that occurred on October 02, 2024 The patient sustained a hand injury at work, which has resulted in ongoing pain and functional limitations. The injury occurred on October 02, and the patient has not received any physical therapy or follow-up care since the incident. There was a recommendation for surgery, but it was postponed, and the patient was cleared for full duty without further evaluation, per patient. Per chart review: The patient got a laceration to the left and from a mcgarry selena and [place] [facility] [place]. The patient noticed bleeding after going home, so the patient went to [facility]. The patient also was given Tetanus shot while he was [place] [facility] [place] The patient is in office today with visible scar tissue on his left hand. He is complaining of pain radiating from hand up into left forearm. Left hand is significantly weaker than right. The patient is concern that he was told that he was going to have surgery and then He was cleared for full duty. He is still have a lot of pain in his hand. Reports that he had a xray at [facility], but feels like his issue is being pushed under the rug. He was seen at [facility], where he was told that he needed surgery and then he was cleared without any intervention. Reports that he did not have any PT and his hand continues to be weak. The patient is requesting a second opinion and would like follow up imaging of his left hand. 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 1. Little interest or pleasure in doing things: not at all 2. Feeling down, depressed, or hopeless: not at all 3. Trouble falling or staying asleep, or sleeping too much: not at all 4. Feeling tired or having little energy: not at all 5. Poor appetite or overeating: not at all 6. Feeling bad about yourself - or that you are a failure or have let yourself or your family down: not at all 7. Trouble concentrating on things, such as reading the newspaper or watching television: not at all 8. Moving or speaking so slowly that other people could have noticed. Or the opposite - being so fidgety or restless that you have been moving around a lot more than usual: not at all 9. Thoughts that you would be better off or of hurting yourself in some way: not at all Total score: 0 Depression Screening Interpretation: Negative Depression Screening Done: Yes Source: Developed by Drs. Jamie Herrera, Fernanda Combs, Pablo Cai and colleagues, with an educational allan from [email or web address]. Thrive Questionnaire Date Thrive assessed: 12/15/24 I am a: Patient What is your living situation today?: I have a steady place to live Within the past 12 months, did the food you bought not last and you didn't have the money to get more?: I choose not to answer this question Within the past 12 months, did you worry whether your food would run out before you got money to buy more?: I choose not to answer this question Do you have trouble paying for medicines?: No Do you have trouble getting transportation to medical appointments?: No Do you have trouble paying your heating and electricity bill?: No Do you have trouble taking care of your child, family member or friend?: No Do you have trouble with day-to-day activities such as bathing, preparing meals, shopping, managing finances, etc.?: No Are you currently unemployed and looking for a job?: Yes Are you interested in more education?: No Please select the resources that you would like help with: None Currently or been in a relationship where the following occur: I choose not to answer THRIVE Score: 0 AUDIT C Alcohol Use Questionnaire (AUDIT-C) 1. How often do you have a drink containing alcohol?: Never Total Score: 0 WELLINGTON-7 AMB Questionnaire WELLINGTON-7 Date WELLINGTON - 7 assessed: 12/15/24 Feeling nervous, anxious, or on edge: 0 = Not at all Not being able to stop or control worryin = Not at all Worrying too much about different things: 0 = Not at all Trouble relaxin = Not at all Being so restless that it is hard to sit still: 0 = Not at all Becoming easily annoyed or irritable: 0 = Not at all Feeling afraid as if something awful might happen: 0 = Not at all Total WELLINGTON-7 score (0-4 normal; 5-9 mild; 10-14 moderate; 15-21 severe): 0 Source: Developed by Drs. Jamie Herrera, Fernanda Combs, Pablo Cai and colleagues, with an educational allan from [employer]. Review of Systems Const Denies body aches, Denies chills, Denies fever(s), Denies headache(s) and Denies poor appetite Eyes Reports no additional complaints ENT Denies dysphagia, Denies dizziness, Denies headache(s) and Denies odynophagia Card Denies chest pain, Denies syncope, Denies edema, Denies irregular heart rhythm, Denies lightheadedness and Denies dyspnea Resp Denies cough and Denies dyspnea GI Denies abdominal pain, Denies constipation, Denies dysphagia, Denies diarrhea, Denies nausea, Denies odynophagia and Denies vomiting Reports no additional complaints Musc Reports abnormal gait and Reports arthralgias (left hand wrist and the entire left hand.) Skin/Breast Reports system reviewed and no additional complaints, except as documented Neuro Reports abnormal gait, Denies dizziness, Denies syncope and Denies headache(s) Psych Reports no additional complaints Physical exam (Primary Care) Vital Signs: Last Vital Signs Pulse 75 12/15/24 16:07 Resp 18 12/15/24 16:07 BP 100/70 12/15/24 16:07 Pulse Ox 98 12/15/24 16:07 Oxygen Delivery Method Room Air 12/15/24 16:07 BMI result Body Mass Index 23.1 Tobacco/Smoking Status: Tobacco use Status Tobacco use date assessed 12/15/24 12/15/24 16:15 Patient Tobacco Use Status Former Tobacco user 12/15/24 16:15 Tobacco use type Cigarette 12/15/24 16:15 e-Cigarette/Vaping Use Never Used 12/15/24 16:15 PHQ-9: PHQ-9 Score PHQ-9: Total score 0 12/19/24 13:59 Depression Screening Interpretation: Negative Thrive Assessment: Date of Thrive Assessment Date Thrive assessed 12/15/24 12/15/24 16:15 Currently or been in a relationship where the following occur: I choose not to answer Const General: cooperative, healthy appearing, comfortable and no acute distress Orientation/consciousness: patient oriented x3 [facility] Head: Yes normocephalic Ears: hearing grossly normal bilaterally General nose exam: Normal external nose present Eyes General: appearance normal, both eyes and all related structures Conjunctivae: conjunctivae normal Neck Neck: Yes full ROM and Yes no lymphadenopathy Resp Effort & Inspection: normal respiratory effort Auscultation: clear to auscultation bilaterally, no crackles, no rales, no rhonchi and no wheezes Cardio Rate: regular rate Rhythm: regular rhythm Skin General skin exam: no rashes or lesions noted Neuro General: patient oriented x3 Gait exam (Neuro): Normal gait present Extrem General: Yes normal to inspection, Yes full ROM and No edema Left upper extremity: hand Details: tenderness, abnormal ROM of finger Details: pain with active ROM and pain with passive ROM, no swelling and laceration (healed (scarred area across dorsal hand), c/o pain radiating into the left wrist/forearm) Psych Affect: normal affect Attitude: cooperative Insight: Good insight present (Psych) Judgement: Good judgement present (Psych) Coding Level of Care Code Est Pt Level 3 (37550) Diagnoses Left hand pain M79.642 Left hand weakness R29.898 Left hand paresthesia R20.2 Time Spent (min) 38 Assessment & Plan Assessment & Plan (1) Left hand pain: Code(s): M79.642 - Pain in left hand Category: Medical (2) Left hand weakness: Code(s): R29.898 - Other symptoms and signs involving the musculoskeletal system Category: Medical (3) Left hand paresthesia: Code(s): R20.2 - Paresthesia of skin Category: Medical Plan The patient will be referred for a follow-up x-ray and consultation with a hand specialist to assess the extent of the work-related hand injury and determine appropriate treatment options. Patient was informed and verbally consented to the use of an ambient scribe for clinic note documentation during this visit. Orders: Orders PSA,Total (Free>4and<10) 12/15/24 Z00.00 - Encounter for general adult medical examination without abnormal findings XR hand LT min 3V Today M79.642 - Pain in left hand, R20.2 - Paresthesia of skin, R29.898 - Other symptoms and signs involving the musculoskeletal system Referrals Hand Surgery Referral M79.642 - Pain in left hand, R20.2 - Paresthesia of skin, R29.898 - Other symptoms and signs involving the musculoskeletal system
--- OUTSIDE RECORDS SUMMARY | 2024-12-15 16:38 | XMS_ITS | Clinical Summary ---
Author Organization [facility] Address [address] [place] [address] Care Team Providers Care Clinical Resource Coordinator Name Role Phone Unavailable Primary Care Provider [...] - 19+ 3-dose series) 1999 COVID-19 Vaccine (2023-2 5 season) 2023 Influenza (#1) 2024 Zoster (Shingrix) (1 of 2) 2030 HPV Vaccine (No Doses Required) Completed Hep A Aged Out No longer eligi [...]
--- OUTSIDE RECORDS SUMMARY | 2024-12-15 16:38 | XMS_ITS | Encounter Summary ---
Author Organization [id number] Address [address] [place] [address] [address] [place] [address] Care Team Providers Care Machine Shop Apprentice Name Role Phone Momo, Carrol OD Primary Care Provider [phone] Encounter Details Date Type Department Care Team (Latest Contact Info) Description 08/24/2020 Abstract [facility] CONVERSION[facility] Dental, Provider, DDS Social History Tobacco Use Types Packs/Day Years Used Date Smoking Tobacco: Never Assessed Sex and Gender Information Value Date Recorded Sex Assigned at Male 02/25/2022 10:20 AM EDT Legal Sex Male 10:20 AM EDT Gender Identity Male 02/25/2022 10:20 AM EDT Sexual Orientation Straight 02/25/2022 10 :20 AM EDT documented as of this encounter Plan of Treatment Not on file documented as of this encounter Visit Diagnoses Not on filedocumented in this encounter Care Teams Machine Shop Apprentice Relationship Specialty Start Date End Date Carrol Barr OD [address] [place] [id number] PCP - General Optometry 02/20/17 05/04/23 documented as of this encounter
== END 2024-12-15 17:21 | disposition home or self-care (01) ==
PROVIDERS: PCP Internal Medicine
DX: M79.642 Pain in left hand (principal); R29.898 Other symptoms and signs involving the musculoskeletal system; R20.2 Paresthesia of skin

== ENCOUNTER → 2024-12-15 16:04 | Outpatient (BNVA) | payer OTHER, SELFPAY | PROVIDERS: PCP Internal Medicine | DX: M79.642 Pain in left hand (principal); R20.2 Paresthesia of skin; R29.898 Other symptoms and signs involving the musculoskeletal system; L90.5 Scar conditions and fibrosis of skin | CPT/HCPCS: 99212 ==

== ENCOUNTER 2024-12-30 13:44 | Outpatient (AMB) | payer OTHER, SELFPAY ==
--- NOTE | 2024-12-30 13:49 | A.OFFVIS_ITS ---
Vital Signs 12/30/24 13:56 Height 6 ft 1 in Weight 172 lb BMI 22.7 BP 102/55 L Blood Pressure Location Rt brachial Position Sitting Pulse 76 Intake Visit Reasons: right groin lipoma Intake Note: Patient referred by Noel Soriano PA-C for mass on Rt groin. Patient c/o: bulging on right groin area. Denies pain. Disturbs the bathroom. Feels urgency when urinating. Imaging: Abdomen pelvis CT~ 07-10-2023 Inspector Assembly Required: No Accompanied by: Self / Same As Patient Allergies No Known Allergies Allergy (Verified 12/30/24 13:54) HPI HPI right groin lipoma: Details: 44-year-old male referred for a lipoma. He has noticed this small lump on the right groin area. He thinks that this is sometimes bigger especially when he is trying to urinate. He does not note this any increased in size or any changes. He said he has had this for several months Review of his records show he that he had a CAT scan done last June, which did not reveal any pathology in the right groin He is very concerned about this and says he gets anxious. He denies GI complaints. 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 Cognitive needs: No Hearing needs: No Vision needs: Yes (glasses) Review of Systems Const Denies chills and Denies fever(s) Card Denies chest pain, Denies dyspnea and Denies dyspnea on exertion Resp Denies cough, Denies dyspnea and Denies dyspnea on exertion GI Denies hematochezia and Denies change in bowel habits Denies hematuria and Denies difficulty urinating Musc Denies back pain and Denies limited range of motion Neuro Denies focal weakness and Denies convulsions Psych Denies depression and Denies mood swings Physical Exam Vital Signs: Last Vital Signs Pulse 76 12/30/24 13:56 BP 102/55 L 12/30/24 13:56 BMI result Body Mass Index 22.7 Const General: comfortable and no acute distress Orientation/consciousness: patient oriented x3 Neck Neck: Yes no lymphadenopathy Resp Auscultation: clear to auscultation bilaterally Cardio Rhythm: regular rhythm GI Other: Right groin with note of a small lipomatous mass, about 1.5 cm, no obvious hernia Palpation (GI): Soft to palpation, nontender and no guarding Neuro General: patient oriented x3 Assessment & Plan Assessment & Plan (1) Lipoma: Code(s): D17.9 - Benign lipomatous neoplasm, unspecified Category: Medical Plan: He has what appears to be a small lipoma in the right groin. He is however, very anxious about this and he is concerned about a tumor or something more scissors. He says that this feels bigger whenever he is urinating I am therefore going to order a CAT scan of the abdomen and pelvis without IV contrast for his peace of mind. I will see him in the office after that He is comfortable with the plan and is happy with this. Coding Level of Care Code New Pt Level 3 (66489) Diagnoses Lipoma D17.9
[2024-12-30 13:56] VITALS: BP 102/55; PULSE 76; BMI 22.7
--- OUTSIDE RECORDS SUMMARY | 2024-12-30 15:01 | XMS_ITS | Encounter Summary ---
Author Organization [employer] [facility] Address [address] [place] [address] [address] [place] [address] Care Team Providers Care Vegetable Cutter Name Role Phone Momo, Carrol OD Primary Care Provider [phone] Encounter Details Date Type Department Care Team (Latest Contact Info) Description 08/24/2020 Abstract [facility] CONVERSION[facility] Dental, Provider, DDS Social History Tobacco [...] on filedocumented in this encounter Care Teams Vegetable Cutter Relationship Specialty Start Date End Date Carrol Barr OD [address] [place] [id number] PCP - General Optometry 02/20/17 05/04/23 documented as of this encounter
--- OUTSIDE RECORDS SUMMARY | 2024-12-30 15:01 | XMS_ITS | Clinical Summary ---
Author Organization [employer] Address [address] [place] [id number] Care Team Providers Care Racking Technician Name Role Phone Unavailable Primary Care Provider Unavailabl e Allergies No known active allergies Medications No known medications Active Problems No known active problems Social History Tobacco Use Types Packs/Day Years Used Date Smoking Tobacco: Never Smokeless Tobacco: Never Tobacco Cessation:Counseling Given: Not Answered Sex and Gender Information Value Date Recorded Sex Assigned at Male 02/25/2022 10:20 AM EDT Legal Sex Male 10:20 AM EDT Gender Identity Male 02/25/2022 10:20 AM EDT Sexual Orientation Straight 02/25/2022 10 :20 AM EDT Plan of Treatment Health Maintenance Due Date Last Done Comments Depression Screening 1980 HIV Screening 1980 Lipid Panel 1980 SDOH Screening 1980 Disability Screening 1980 Alcohol/Substance Use Screening 1992 Family Planning (PISQ) 1995 HPV Vaccines (1 - Male 3-dos e series) 1995 Hepatitis C Screening 1998 DTaP/Tdap/Td Vaccines (1 - Tdap) 1999 Hepatitis B Vaccines (1 of 3 - 19+ 3-dose series) 1999 Tobacco Screening 07/16/2023 07/15/2022 COVID-19 Vaccine (1 - 2023-2 5 season) 2024 Influenza Vaccine (#1) 2024 Zoster Vaccines (1 of 2) 2030 RSV Patients and Pa tients Aged 60 years or older (1 - 1-dose 75+ series) 2055 HIB Vaccines Aged Out No longer eligi ble based on patient's age to complete this topic Hepatitis A Vaccines Aged Out No long er eligible based on patient's age to complete this topic IPV Vaccines Aged Out No longer eligi ble based on patient's age to complete this topic Meningococcal B Vaccine Aged Out No l onger eligible based on patient's age to complete this topic Meningococcal Vaccine Aged Out No nakia katia eligible based on patient's age to complete this topic Pneumococcal Vaccine: Pediat rics (0 to 5 Years) and At-Risk Patients (6 to 49) Years Aged Out No longer eligi ble based on patient's age to complete this topic RSV under 20 months Aged Out No longe r eligible based on patient's age to complete this topic Rotavirus Vaccines Aged Out No longer eligible based on patient's age to complete this topic Insurance [facility]
--- OUTSIDE RECORDS SUMMARY | 2024-12-30 15:01 | XMS_ITS | Clinical Summary ---
Author Organization [facility] Address [address] [place] [address] Care Team Providers Care Optomechanical Engineer Name Role Phone Unavailable Primary Care Provider [...] series) 1999 COVID-19 Vaccine (2023-2 5 season) 2024 Influenza (#1) 2024 Zoster (Shingrix) (1 of [...]
== END 2024-12-30 14:09 | disposition home or self-care (01) ==
LOC: HO.HGS 13:45
PROVIDERS: PCP Internal Medicine; Visit Provider Surgery
DX: D17.9 Benign lipomatous neoplasm, unspecified (principal)
CPT/HCPCS: 99203

== ENCOUNTER → 2024-12-30 13:44 | Outpatient (BNVA) | payer OTHER, SELFPAY | PROVIDERS: PCP Internal Medicine; Visit Provider Surgery | DX: D17.9 Benign lipomatous neoplasm, unspecified (principal) | CPT/HCPCS: 99202 ==

== ENCOUNTER 2025-01-18 08:49 | Outpatient (AMB) | payer OTHER, SELFPAY ==
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
[2025-01-18 09:05] VITALS: BMI 25.1
--- OUTSIDE RECORDS SUMMARY | 2025-01-18 09:58 | XMS_ITS | Clinical Summary ---
Author Organization [facility] Address [address] [place] [address] Care Team Providers Care Sports Announcer Name Role Phone Unavailable Primary Care Provider [...]
--- OUTSIDE RECORDS SUMMARY | 2025-01-18 09:58 | XMS_ITS | Encounter Summary ---
Author Organization [employer] Address [address] [place] [address] [address] [place] [address] Care Team Providers Care Editor Managing Newspaper Name Role Phone Momo, Carrol OD Primary Care Provider [phone] Encounter Details Date Type Department Care Team (Latest Contact Info) Description 08/24/2020 Abstract [facility] CONVERSIONS Dental, Provider, DDS Social History Tobacco [...] on filedocumented in this encounter Care Teams Editor Managing Newspaper Relationship Specialty Start Date End Date Carrol Barr OD [address] [place] [id number] PCP - General Optometry 02/20/17 05/04/23 documented as of this encounter
--- OUTSIDE RECORDS SUMMARY | 2025-01-18 09:58 | XMS_ITS | Clinical Summary ---
Author Organization [employer] Address [address] [place] [id number] Care Team Providers Care Director Of Collections And Archives Name Role Phone Unavailable Primary Care Provider [...] patient's age to complete this topic Insurance [facility] STANDARD [facility] ACO
== END 2025-01-18 09:40 | disposition home or self-care (01) ==
LOC: HO.HOS 08:49
PROVIDERS: PCP Internal Medicine; Visit Provider Orthopaedic Surgery
DX: M25.642 Stiffness of left hand, not elsewhere classified (principal)
CPT/HCPCS: 99203

== ENCOUNTER → 2025-01-18 08:49 | Outpatient (BNVA) | payer OTHER, SELFPAY | PROVIDERS: PCP Internal Medicine; Visit Provider Orthopaedic Surgery | DX: M25.642 Stiffness of left hand, not elsewhere classified (principal) | CPT/HCPCS: 99202 ==

== ENCOUNTER → 2025-01-18 09:08 | Outpatient (BNV) | payer OTHER, SELFPAY | PROVIDERS: Visit Provider Radiology Diagnostic Radiology | DX: M79.642 Pain in left hand (principal) | CPT/HCPCS: 73130 ==

== ENCOUNTER 2025-01-19 08:23 | Outpatient (REF) | payer OTHER, SELFPAY ==
--- NOTE | ~2025-01-19 | XR_ITS ---
EXAMINATION: XR HAND, LEFT CLINICAL INFORMATION: M79.642 - Pain in left hand COMPARISON: March 20, 2015 TECHNIQUE: PA, lateral, and oblique views of the left hand. FINDINGS: No acute cortical disruption or malalignment. No bony erosions. Periosteal bone reaction, third metacarpal. No soft tissue calcifications. No lytic or blastic lesions. No subcutaneous emphysema. XR/XR hand LT min 3V IMPRESSION: Abnormal third metacarpal. Recommend further imaging evaluation with CT versus MRI left hand. Electronically signed by: Poli Hudson MD 01/18/2025 09:32 AM EDT
--- OUTSIDE RECORDS SUMMARY | 2025-01-20 08:52 | XMS_ITS | Encounter Summary ---
Author Organization [employer] Address [address] [place] [address] [address] [place] [address] Care Team Providers Care Real Estate Sales Supervisor Name Role Phone Momo, Carrol OD Primary Care Provider [phone] Encounter Details Date Type Department Care Team (Latest Contact Info) Description 08/24/2020 Abstract [facility] CONVERSIONS Dental, Provider, DDS Social History Tobacco [...] on filedocumented in this encounter Care Teams Real Estate Sales Supervisor Relationship Specialty Start Date End Date Carrol Barr OD [address] [place] [id number] PCP - General Optometry 02/20/17 05/04/23 documented as of this encounter
--- OUTSIDE RECORDS SUMMARY | 2025-01-20 08:52 | XMS_ITS | Clinical Summary ---
Author Organization [facility] Address [address] [place] [address] Care Team Providers Care Sustainability Engineer Name Role Phone Unavailable Primary Care [...]
--- OUTSIDE RECORDS SUMMARY | 2025-01-20 08:52 | XMS_ITS | Clinical Summary ---
Author Organization [employer] Address [address] [place] [address] Care Team Providers Care Drug Room Operator Name Role Phone Unavailable Primary Care Provider [...] patient's age to complete this topic Insurance [facility] STANDARD [facility] ACO
== END 2025-01-19 08:24 | disposition home or self-care (01) ==
LOC: HO.HOSX 08:23
PROVIDERS: Visit Provider Orthopaedic Surgery
DX: M79.642 Pain in left hand (principal)
CPT/HCPCS: 73130

== ENCOUNTER 2025-02-24 09:30 | Outpatient (RCR) | payer OTHER, SELFPAY ==
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
--- NOTE | 2025-02-24 10:08 | MHC.OT.DC ---
[facility] Office [address] [facility] [address] [facility] [phone] F: [phone] F: [phone] Occupational Therapy Discharge Note Patient Name: Marco Guzmán Provider: Elena Rae Diagnosis: (L)stiffness of finger joint Date of Surgery: Date of Evaluation: 01/24/25 Date of Discharge: Treatments to Date: 3 Cancellations to Date: No Shows to Date: Discharge Status: Achieved Goals Improved Function Discharge Summary: Patient is d/c'd today as he has increased his impregnator and drier strength by 70lbs., reports 0/10 pain, and his thumb opposition WFLs. As patient present with no deficits no further intervention is needed. Thank you for your referral. Electronically Signed By: PARAM Jean/Genny, ELIZABETH Reviewed/agree with student documentation: Therapist: Please Sign and return to therapist, thank you for your referral.
== END 2025-02-24 10:09 | disposition home or self-care (01) ==
LOC: HO.OT 09:30
PROVIDERS: Visit Provider Orthopaedic Surgery
DX: M25.642 Stiffness of left hand, not elsewhere classified (principal)
CPT/HCPCS: 97110; 97140; 97165

== ENCOUNTER 2025-03-30 08:38 | Outpatient (AMB) | payer OTHER, SELFPAY ==
--- NOTE | 2025-03-30 08:47 | A.OFFPC_ITS ---
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 Accompanied by: Self / Same As Patient Allergies No Known Allergies Allergy (Verified 03/30/25 09:04) Medication List - Last Reconciled 03/30/25 by VALENTINO Carrington No Known Home Meds Tobacco use date assessed: 03/30/25 Dental Screening Dental Screen Date: 03/30/25 Did you have a dental visit in the last 12 months?: No Did you have a dental problem in the last 6 months where you did not have access to dental care?: No Was dental information given to patient?: No HPI PE HPI Details Patient is a 44-year-old male presenting for annual physical Dentist:not for years, 2011 Eye: Same 2011 Snellen: Right: Left: Corrected vision: yes STI screening: Colonoscopy: Pap Smer: PHQ-9: Flu:does take flu vaccines COVID: none Tdap:2024 up to date Diet:regular diet Exercise:planning to go back to working out again The patient is a 44 year old individual presenting for a physical examination. The patient complains of right-sided rib pain, which feels more uncomfortable recently and feels like it is poking out. The pain is worse when lying down, causes difficulty sleeping, and at one point was associated with shortness of breath. Regarding health maintenance, the patient has not been to the dentist for years, roughly since 2011. It has also been a while since the patient's eyes were checked; the patient has glasses but does not wear them. The patient notes a history of a patch in the eye and a sensation of stretching in the eye with certain movements. The patient has not received any COVID-19 vaccines and was unsure about the status of a tetanus shot, though it was likely administered during a previous emergency room visit for a hand laceration. Past medical history is notable for a lipoma, which the patient reports swells when the bladder is full. The patient also reports a history of depression and numbness in the fingers. The patient previously lifted weights and weighed 325 lbs but stopped due to depression and now weighs 177 lbs. Health Maintenance The patient is presenting for a physical exam and is due for routine screenings. Routine blood work will be obtained today. The patient was advised to get an eye exam at [facility], as the current glasses prescription is likely outdated. The patient was also reminded of being overdue for a dental visit, having not seen a dentist in many years. 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 - The patient is experiencing difficulty getting back into a desired career, citing issues with unions and the patient's record as barriers. - Substance Use: The patient denies curr ent use of marijuana but reports past use. - Exercise: The patient does not current ly work out. - The patient has a history of weightlif ting and calisthenics. Results - Vitals: Blood pressure was 180/100 mmH g during the visit. - Imaging: An ultrasound was previously ordered for a surgical consult regarding a lipoma. left Rib pain: Reports this has been going on for a year. Right groin lipoma: Patient was seen by General surgery, who ordered and CT of the abdomen and pelvis due to the patient concerns of something worse than lipoma Left hand Laceration healed: Was seen by hand specialist. Symptoms off numbness and discomfort in hand, OT was ordered by hand specialist and recommended to go back to work with full duty. HPI Comments History of Present Illness Details History of Present Illness The patient is a 44 year old individual presenting for a physical examination. The patient complains of right-sided rib pain, which feels more uncomfortable recently and feels like it is poking out. The pain is worse when lying down, causes difficulty sleeping, and at one point was associated with shortness of breath. Regarding health maintenance, the patient has not been to the dentist for years, roughly since 2011. It has also been a while since the patient's eyes were checked; the patient has glasses but does not wear them. The patient notes a history of a patch in the eye and a sensation of stretching in the eye with certain movements. The patient has not received any COVID-19 vaccines and was unsure about the status of a tetanus shot, though it was likely administered during a previous emergency room visit for a hand laceration. Past medical history is notable for a lipoma, which the patient reports swells when the bladder is full. The patient also reports a history of depression and numbness in the fingers. The patient previously lifted weights and weighed 325 lbs but stopped due to depression and now weighs 177 lbs. Health Maintenance The patient is presenting for a physical exam and is due for routine screenings. Routine blood work will be obtained today. The patient was advised to get an eye exam at [facility], as the current glasses prescription is likely outdated. The patient was also reminded of being overdue for a dental visit, having not seen a dentist in many years. 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 - The patient is experiencing difficulty getting back into a desired career, citing issues with unions and the patient's record as barriers. - Substance Use: The patient denies curr ent use of marijuana but reports past use. - Exercise: The patient does not current ly work out. - The patient has a history of weightlif ting and calisthenics. Results - Vitals: Blood pressure was 180/100 mmH g during the visit. - Imaging: An ultrasound was previously ordered for a surgical consult regarding a lipoma. 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 1. Little interest or pleasure in doing things: not at all 2. Feeling down, depressed, or hopeless: not at all 3. Trouble falling or staying asleep, or sleeping too much: not at all 4. Feeling tired or having little energy: not at all 5. Poor appetite or overeating: not at all 6. Feeling bad about yourself - or that you are a failure or have let yourself or your family down: not at all 7. Trouble concentrating on things, such as reading the newspaper or watching television: not at all 8. Moving or speaking so slowly that other people could have noticed. Or the opposite - being so fidgety or restless that you have been moving around a lot more than usual: not at all 9. Thoughts that you would be better off or of hurting yourself in some way: not at all Total score: 0 Depression Screening Interpretation: Negative Depression Screening Done: Yes Source: Developed by Drs. Jamie Herrera, Fernanda Combs, Pablo Cai and colleagues, with an educational allan from [employer]. Thrive Questionnaire Date Thrive assessed: 03/30/25 I am a: Patient What is your living situation today?: I have a steady place to live Within the past 12 months, did the food you bought not last and you didn't have the money to get more?: I choose not to answer this question Within the past 12 months, did you worry whether your food would run out before you got money to buy more?: I choose not to answer this question Do you have trouble paying for medicines?: No Do you have trouble getting transportation to medical appointments?: No Do you have trouble paying your heating and electricity bill?: No Do you have trouble taking care of your child, family member or friend?: No Do you have trouble with day-to-day activities such as bathing, preparing meals, shopping, managing finances, etc.?: No Are you currently unemployed and looking for a job?: Yes Are you interested in more education?: No Please select the resources that you would like help with: None Currently or been in a relationship where the following occur: I choose not to answer THRIVE Score: 0 AUDIT C Alcohol Use Questionnaire (AUDIT-C) 3. How often do you have six or more drinks on one occasion?: Never Total Score: 0 WELLINGTON-7 AMB Questionnaire WELLINGTON-7 Date WELLINGTON - 7 assessed: 12/15/24 Feeling nervous, anxious, or on edge: 0 = Not at all Not being able to stop or control worryin = Not at all Worrying too much about different things: 0 = Not at all Trouble relaxin = Not at all Being so restless that it is hard to sit still: 0 = Not at all Becoming easily annoyed or irritable: 0 = Not at all Feeling afraid as if something awful might happen: 0 = Not at all Total WELLINGTON-7 score (0-4 normal; 5-9 mild; 10-14 moderate; 15-21 severe): 0 Source: Developed by Drs. Jamie Herrera, Fernanda Combs, Pablo Cai and colleagues, with an educational allan from [employer]. Review of Systems Narrative Review of Systems - Eyes: Reports a sensation of stretching in the eye with certain movements and a patch inside the eye. - Respiratory: Reports a past episode of dyspnea. - Gastrointestinal: Reports a history of constipation and heartburn. - Musculoskeletal: Reports right-sided rib pain that makes it difficult to sleep. - Neurological: Reports numbness in fingers. - Psychological: Reports a history of depression. Const Denies headache(s) Eyes Denies loss of vision ENT Denies vertigo, Denies dizziness, Denies headache(s) and Denies sore throat Card Denies chest pain, Denies leg edema and Denies lightheadedness Resp Denies cough, Denies hemoptysis and Denies wheezing GI Denies abdominal pain, Denies melena, Reports constipation, Reports heartburn, Denies diarrhea and Denies vomiting Denies dysuria, Denies urinary frequency and Denies urinary urgency Musc Denies arthralgias, Denies joint swelling, Denies numbness, Denies tingling and Reports other (left side rib pain) Skin/Breast Reports other (Left hand scar, status post laceration) Neuro Denies Abnormal speech present, Denies behavioral changes, Denies vertigo, Denies dizziness, Denies headache(s), Denies loss of vision, Denies memory loss, Denies numbness and Denies tingling Psych Denies anxiety, Denies behavioral changes, Denies depression, Denies memory loss and Denies panic attacks Matias/Lymph Denies easy bleeding and Denies easy bruising Aller/Immun Denies wheezing Physical exam (Primary Care) Vital Signs: Last Vital Signs Pulse 74 03/30/25 08:51 Resp 18 03/30/25 08:51 BP 104/64 03/30/25 08:51 Pulse Ox 98 03/30/25 08:51 Oxygen Delivery Method Room Air 03/30/25 08:51 BMI result Body Mass Index 23.6 Tobacco/Smoking Status: Tobacco use Status Tobacco use date assessed 03/30/25 03/30/25 08:56 Patient Tobacco Use Status Former Tobacco user 03/30/25 08:47 Tobacco use type Cigarette 03/30/25 08:47 e-Cigarette/Vaping Use Never Used 03/30/25 08:47 PHQ-9: PHQ-9 Score PHQ-9: Total score 0 03/30/25 08:58 Depression Screening Interpretation: Negative Thrive Assessment: Date of Thrive Assessment Date Thrive assessed 03/30/25 03/30/25 08:56 Currently or been in a relationship where the following occur: I choose not to answer Narrative Physical Exam - Vitals: Blood pressure is 180/100 mmHg. - Thorax: Examination reveals tenderness to palpation over the right rib area. - Respiratory: Lungs are clear to auscultation. Const General: healthy appearing, no acute distress, alert and awake Nutritional Appearance: well nourished Orientation/consciousness: oriented to person, oriented to place and oriented to time HENMT Ears: TM's normal bilaterally General nose exam: Normal nasal mucous membranes and turbinates present Eyes Conjunctivae: conjunctivae normal Sclerae: sclerae normal Pupils: Equal, round and reactive pupils present Neck Neck: Yes no lymphadenopathy and Yes no JVD Thyroid: Thyroid normal Carotids: no bruits Resp Effort & Inspection: normal respiratory effort and not tachypneic Auscultation: no crackles, no rales, no rhonchi and no wheezes Cardio Rate: regular rate Rhythm: regular rhythm Heart sounds: S1 normal heart sound present, S2 normal heart sound present, no murmurs and normal S1 and S2 GI Palpation (GI): Soft to palpation, nontender, no hepatomegaly and no splenomegaly Auscultation: normal bowel sounds General: Yes no CVA tenderness Back/Spine/Pelvis Back: no CVA tenderness Skin General skin exam: no rashes or lesions noted and dry skin Neuro General: oriented to person, oriented to place, oriented to time and no focal motor deficits Cranial nerves: Yes CN's II-XII intact bilaterally and Yes Equal, round and reactive pupils present Speech: No Abnormal speech present Gait exam (Neuro): Normal gait present Motor exam (neuro): no tremor noted Deep tendon reflexes (DTR's): Right triceps reflex intensity grade: 2+, Left triceps reflex intensity grade: 2+, Rt Biceps (C5, C6): 2+, Left biceps reflex intensity grade: 2+, Right brachioradialis reflex intensity grade: 2+, Left brachioradialis reflex intensity grade: 2+, Right patellar reflex intensity grade: 2+ and Left patellar reflex intensity grade: 2+ Extrem Right upper extremity: full ROM Left upper extremity: full ROM Right lower extremity: full ROM; no edema Left lower extremity: full ROM; no edema Psych Mental Status: mental status grossly normal Speech and movement: Normal speech and movement present Affect: normal affect Attitude: cooperative Thought process: Normal thought process present Coding Level of Care Code Est Pt Prev Care 40-64y(96184) Diagnoses Annual physical exam Z00.00 Rib pain on left side R07.89 Lipoma of left lower extremity D17.24 Lipoma location: lower extremity Laterality: left Time Spent (min) 37 Assessment & Plan Assessment & Plan (1) Annual physical exam: Code(s): Z00.00 - Encounter for general adult medical examination without abnormal findings Category: Medical Plan: Preventative guidelines reviewed with the patient. He has not completed his preordered labs as yet. Encouraged the patient to get his blood work done and his x-ray to further evaluate this condition. Overall the patient is in good health. (2) Rib pain on left side: Code(s): R07.89 - Other chest pain Category: Medical Plan: Rib x-ray ordered to further evaluate (3) Lipoma: Code(s): D17.9 - Benign lipomatous neoplasm, unspecified Category: Medical Qualifiers: Lipoma location: lower extremity Laterality: left Qualified Code(s): D17.24 - Benign lipomatous neoplasm of skin and subcutaneous tissue of left leg Plan: Left groin area Lipoma The patient has a known lipoma that was previously evaluated. The patient notes that it becomes swollen, particularly when needing to urinate. There is a pending ultrasound appointment in preparation for a surgical consultation
[2025-03-30 08:51] VITALS: BP 104/64; PULSE 74; RESP 18; O2SAT 98; BMI 23.6
--- OUTSIDE RECORDS SUMMARY | 2025-03-30 08:54 | XMS_ITS | Encounter Summary ---
Author Organization [facility] [facility] [employer] Address [address] [place] [address] [address] [place] [address] Care Team Providers Care Cash Processing Specialist Name Role Phone Momo, Carrol OD Primary Care Provider [phone] Encounter Details Date Type Department Care Team (Latest Contact Info) Description 08/24/2020 Abstract [facility] CONVERSIONS Dental, Provider, DDS Social History [...] on filedocumented in this encounter Care Teams Cash Processing Specialist Relationship Specialty Start Date End Date Carrol Barr OD [address] [place] [id number] PCP - General Optometry 02/20/17 05/04/23 documented as of this encounter
--- OUTSIDE RECORDS SUMMARY | 2025-03-30 08:54 | XMS_ITS | Clinical Summary ---
Author Organization [employer] Address [address] [place] [id number] Care Team Providers Care Hand Loom Weaver Name Role Phone Unavailable Primary Care Provider [...] Screening 07/16/2023 07/15/2022 COVID-19 Vaccine (1 - 2024-2 6 season) 2024 Influenza Vaccine (#1) 2024 Zoster [...] patient's age to complete this topic Insurance [facility]
--- OUTSIDE RECORDS SUMMARY | 2025-03-30 08:54 | XMS_ITS | Clinical Summary ---
Author Organization [facility] Address [address] [place] [address] Care Team Providers Care Business Solutions Architect Name Role Phone Unavailable Primary Care Provider [...] - 19+ 3-dose series) 1999 COVID-19 Vaccine (2024-2 6 season) 2024 Influenza (#1) 2024 Zoster (Shingrix) [...]
== END 2025-03-30 09:31 | disposition home or self-care (01) ==
LOC: HO.HMCH 08:39
DX: Z00.00 Encounter for general adult medical examination without abnormal findings (principal); R07.89 Other chest pain; D17.24 Benign lipomatous neoplasm of skin and subcutaneous tissue of left leg

== ENCOUNTER 2025-03-30 08:38 | Outpatient (REF) | payer OTHER, SELFPAY ==
--- NOTE | ~2025-03-30 | XR_ITS ---
EXAMINATION: XR RIBS 3 VIEWS MINIMUM WITH CHEST LEFT HISTORY: R07.89 - Other chest pain COMPARISON: Comparison is made with the prior examination of the chest dated 07/05/2018. FINDINGS: A single PA view of the chest and 3 views of the left ribs are submitted. The lungs are expanded and clear. There is no pleural effusion, pneumothorax, or pulmonary vascular congestion. The heart is normal in size. The left ribs are intact. No fracture is seen. XR/XR ribs LT min 3V w CXR1V IMPRESSION: No acute cardiopulmonary abnormality. No evidence of fracture of the left ribs. Electronically signed by: Jamie Daly MD 03/30/2025 01:05 PM JESSY
== END 2025-03-30 08:39 | disposition home or self-care (01) ==
LOC: HO.XRAY 08:38
DX: Z00.00 Encounter for general adult medical examination without abnormal findings (principal); R07.89 Other chest pain; D17.24 Benign lipomatous neoplasm of skin and subcutaneous tissue of left leg
CPT/HCPCS: 71101; 99396

== ENCOUNTER → 2025-03-30 09:39 | Outpatient (BNV) | payer OTHER, SELFPAY | PROVIDERS: Visit Provider Radiology Diagnostic Radiology | DX: R07.89 Other chest pain (principal) | CPT/HCPCS: 71101 ==